=== PATIENT | male | born 1985 | race African-American/Black ===

== ENCOUNTER 2020-08-22 09:12 | Emergency (ER) | payer OTHER ==
[~2020-08-22] VITALS: Ht 170.2 cm; Wt 60.9 kg
[2020-08-22 09:16] VITALS: BP 109/70
[2020-08-22] MEDS ORDERED: NEOSPORIN OINT. PKT 1 PACKET ONE (10:04)
--- NOTE | 2020-08-22 10:05 | NUR ---
break rn- wound dressed, discharge instructions reviewed
== END 2020-08-22 10:15 | disposition home or self-care (01) ==
LOC: ED 10:12
DX: L03.012 Cellulitis of left finger (principal); F17.200 Nicotine dependence, unspecified, uncomplicated
CPT/HCPCS: 10060; 99283

== ENCOUNTER 2021-02-06 23:21 | Emergency (ER) | payer OTHER ==
[~2021-02-06] VITALS: Ht 170.2 cm; Wt 60.9 kg
[2021-02-06] MEDS ORDERED: ACETAMINOPHEN 500 MG TABLET ONE (23:58)
[2021-02-06] MEDS ORDERED: KETOROLAC 30 MG/1 ML ONE (23:58)
[2021-02-06] MEDS ORDERED: LIDODERM 5% PATCH TD ONE (23:58)
[2021-02-07] MEDS ORDERED: LIDODERM 5% PATCH TD ONE
[2021-02-07] MEDS ORDERED: ACETAMINOPHEN 500 MG TABLET PO ONE
[2021-02-07] MEDS ORDERED: KETOROLAC 30 MG/1 ML IM ONE
[2021-02-07 00:04] LABS: BASOPHILS % (AUTO) 1 % (0-1); EOSINOPHILS % (AUTO) 1 % (1-7); LYMPHOCYTES % (AUTO) 44 % (22-44); MEAN CORPUSCULAR HEMOGLOBIN 29.2 pg (27.5-34.5); MEAN CORPUSCULAR HGB CONC 33.1 g/dL (33.2-36.2); MEAN PLATELET VOLUME 7.5 fL (7.4-10.4); MONOCYTES % (AUTO) 7 % (2-9); NEUTROPHILS % (AUTO) 46 % (42-75); PLATELET COUNT 265 x10^3/uL (130-400); RED BLOOD COUNT 5.07 x10^6/uL (4.38-5.82); RED CELL DISTRIBUTION WIDTH 13.3 % (9.4-14.8)
[2021-02-07 00:11] LABS: ANION GAP 4 mmol/L (5-15); CALCIUM 8.9 mg/dL (8.5-10.1); CHLORIDE 106 mmol/L (98-107); CREATININE 1.31 mg/dL (0.7-1.3)
[2021-02-07 00:12] LABS: MD NO
--- NOTE | 2021-02-07 00:52 | NUR ---
Pt medicated per order. Pt now sleeping, states he feels better. Pt with stable VS. Family at bedside. Will monitor.
--- NOTE | 2021-02-07 00:55 | NUR ---
BEDSIDE REPORT FROM LACY SERNA, PT CARE TRANSFERRED AT THIS TIME. PT RESTING ON GURNEY, NAD, APPEARS COMFORTABLE, WCTM. CHART UP FOR RECHECK
[2021-02-07 01:16] VITALS: BP 99/54
--- NOTE | 2021-02-07 01:17 | NUR ---
Patient given discharge instructions and they have confirmed that they understand the instructions. Patient ambulatory with steady gait. NAD, DENIES ADDITIONAL QUESTIONS OR NEEDS, VSS, NO PERSONAL BELONGINGS LEFT IN ROOM AFTER DC.
== END 2021-02-07 01:44 | disposition home or self-care (01) ==
LOC: ED 02-07 01:18
DX: S39.012A Strain of muscle, fascia and tendon of lower back, initial encounter (principal); R53.83 Other fatigue; Z87.891 Personal history of nicotine dependence; X58.XXXA Exposure to other specified factors, initial encounter; Y93.89 Activity, other specified; Y92.89 Other specified places as the place of occurrence of the external cause; Y99.8 Other external cause status
CPT/HCPCS: 36415; 71045; 80048; 82040; 85025; 96372; 99284; J1885

== ENCOUNTER 2021-04-01 03:18 | Emergency (ER) | payer OTHER ==
[~2021-04-01] VITALS: Ht 170.2 cm; Wt 58.0 kg
--- NOTE | 2021-04-01 04:05 | NUR ---
PT ARRIVED WITH COMPLAINTS OF LBP THAT HAS BEEN OCCURING SINCE February, PT STATES THAT HE HAS BEEN TO THE ER MULTIPLE TIMES AND NO ONE HAS COMPLETED ANY IMAGING, JUST MEDS AND DC. PT ORIGINALLY IN POSITION UPON ENTRY TO ROOM, S.O. AT BEDSIDE AND IS PRIMARY HISTORIAN DUE TO PT CLAIMING HE IS IN TOO MUCH PAIN TO SPEAK. MAJORITY OF PAIN IN R LOWER BACK. PT CONNECTED TO BP AND O2 MONITORS, VSS, NADN. PROVIDER AT BEDSIDE TO DISCUSS POC
[2021-04-01] MEDS ORDERED: DEXAMETHASONE 4 MG TABLET PO ONE (04:30)
[2021-04-01] MEDS ORDERED: ACETAMINOPHEN 500 MG TABLET PO ONE (04:30)
[2021-04-01] MEDS ORDERED: LIDODERM 5% PATCH TD ONE ×2 (04:30→04:41)
[2021-04-01] MEDS ORDERED: DEXAMETHASONE 4 MG TABLET ONE (04:41)
[2021-04-01] MEDS ORDERED: ACETAMINOPHEN 500 MG TABLET ONE (04:41)
[2021-04-01] MEDS ORDERED: AMOXICILLIN 500 MG CAPSULE ONE (05:53)
[2021-04-01 05:55] VITALS: BP 112/65
[2021-04-01] MEDS ORDERED: AMOXICILLIN 500 MG CAPSULE PO ONE (06:00)
== END 2021-04-01 06:37 | disposition home or self-care (01) ==
LOC: ED 03:39
DX: M54.41 Lumbago with sciatica, right side (principal); J02.0 Streptococcal pharyngitis; G89.29 Other chronic pain; F17.210 Nicotine dependence, cigarettes, uncomplicated
CPT/HCPCS: 72110; 87880; 99284; 99406